=== PATIENT | male | born 1960 | race Caucasian/White ===

== ENCOUNTER 2017-08-29 07:45 | Emergency (ER) | payer BC ==
--- NOTE | 2017-08-29 09:16 | ER Document Report ---
ED Extremity Problem, Lower - General Chief Complaint: Leg Pain Stated Complaint: RIGHT LEG PAIN Time Seen by Provider: 08/29/17 09:13 Notes: The patient is a 57-year-old male, PMHx DM, current smoker, who presents with pain and swelling behind his right knee and right calf for the past 6 days. 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 He denies chest pain, shortness of breath, recent travel, history of DVTs, recent immobilization, numbness, tingling or injury. - Related Data Allergies/Adverse Reactions: No Known Allergies Allergy (Unverified 08/29/17 07:49) Past Medical History - General Information source: Patient - Social History Smoking Status: Current Every Day Smoker Family History: Reviewed & Not Pertinent Review of Systems - Review of Systems Notes: REVIEW OF SYSTEMS: CONSTITUTIONAL: -fevers, -chills EENT: -eye pain, -difficulty swallowing, -nasal congestion CARDIOVASCULAR: -chest pain, -syncope. RESPIRATORY: -cough, -SOB GASTROINTESTINAL: -abdominal pain, -nausea, -vomiting, -diarrhea GENITOURINARY: -dysuria, -hematuria MUSCULOSKELETAL: +right leg pain, -back pain, -neck pain SKIN: -rash or skin lesions. HEMATOLOGIC: -easy bruising or bleeding. LYMPHATIC: -swollen, enlarged glands. NEUROLOGICAL: -altered mental status or loss of consciousness, -headache, - neurologic symptoms PSYCHIATRIC: -anxiety, -depression. ALL OTHER SYSTEMS REVIEWED AND NEGATIVE. Physical Exam - Vital signs Vitals: Temp Pulse Resp BP Pulse Ox 98.5 F 95 16 131/74 H 97 08/29/17 07:59 08/29/17 07:59 08/29/17 07:59 08/29/17 07:59 08/29/17 07:59 - Notes Notes: PHYSICAL EXAMINATION: GENERAL: Well-appearing, well-nourished and in no acute distress. HEAD: Atraumatic, normocephalic. EYES: Pupils equal round and reactive to light, extraocular movements intact, sclera anicteric, conjunctiva are normal. ENT: nares patent, oropharynx clear without exudates. Moist mucous membranes. NECK: Normal range of motion, supple without lymphadenopathy LUNGS: Breath sounds clear to auscultation bilaterally and equal. No wheezes rales or rhonchi. HEART: Regular rate and rhythm without murmurs ABDOMEN: Soft, nontender, normoactive bowel sounds. No guarding, no rebound. No masses appreciated. EXTREMITIES: Strong distal pulses. Sensation intact. Right calf tenderness and popliteal tenderness. Normal range of motion, no pitting or edema. No cyanosis. NEUROLOGICAL: Cranial nerves grossly intact. Normal speech, normal gait. Normal sensory and motor exams. PSYCH: Normal mood, normal affect. SKIN: Warm, Dry, normal turgor, no rashes or lesions noted. Course - Re-evaluation Re-evalutation: Call from Dr. Chang. Pt with RLE DVT. He has no chest pain, shortness of breath, hypoxia or tachycardia to suggest PE. Patient's primary care physician is in [place]. Spoke to patient's about risks and benefits of Xarelto and Coumadin and patient elects to have Xarelto. Will begin him on a Xarelto starter pack for the treatment of DVT with very strict return precautions, especially about pulmonary embolism. Also instructed him to stop smoking. Pt comfortable with plan and he understands return precautions. - Vital Signs Vital signs: Temp Pulse Resp BP Pulse Ox 98.5 F 95 16 131/74 H 97 08/29/17 07:59 08/29/17 07:59 08/29/17 07:59 08/29/17 07:59 08/29/17 07:59 Discharge - Discharge Clinical Impression: DVT, lower extremity Qualifiers: Affected thrombotic vein of extremity: unspecified vein of extremity Chronicity : acute Laterality: right Qualified Code(s): I82.401 - Acute embolism and thrombosis of unspecified deep veins of right lower extremity Condition: Stable Disposition: HOME, SELF-CARE Additional Instructions: Take the Xarelto as directed. If you notice any signs of bleeding, you have any chest pain or shortness of breath, return to the emergency room. You must follow-up with your primary care physician when you return to [place]. DVT Outpatient Treatment You have deep venous thrombosis (DVT) in your leg. DVT or phlebitis is blood clots within the large deep veins. This causes redness, warmth, and tenderness of the involved area. This problem is more likely to affect people who smoke, take estrogen, have had recent surgery, have been immobile, have had previous DVT, or who have serious underlying health conditions. Keep your legs elevated. A heating pad, 20 minutes every two hours, can help with leg pain. For now, keep walking to a minimum. Don't do any physical work, lifting, or exercise. If the doctor has recommended medication for you, it 's important that you take it. You will be started on a blood-thinning medication. Follow-up is important. Your medication needs to be monitored. Call or return at once if you cough blood or vomit blood, pass black or bloody stool, or have any other unusual bleeding. DVT can cause serious complications. The clots can damage the valves in the veins, leading to chronic pain and swelling. If a clot breaks loose and floats upstream, it can stick in the lungs. A clot in the lungs, called pulmonary embolism, can be life-threatening. Call the doctor or return if you develop increasing leg pain and swelling, leg discoloration, fever, chest pain, or shortness of breath. Prescriptions: Rivaroxaban [Xarelto] 1 each PO BID 28 Days [id number] Forms: Elevated Blood Pressure, Smoking Cessation Education Referrals: GITA CHANG MD [ACTIVE STAFF] - Follow up as needed
[2017-08-29] MEDS ORDERED: RIVAROXABAN 15 MG TABLET PO ONE (11:08)
[2017-08-29 11:18] VITALS: BP 130/77
--- NOTE | 2017-08-29 13:37 | XCELERA REPORT ---
[address] [address] Lower Extremity Venous Evaluation Name: SUZANNA EVANS Age: 57 yrs Gender: Male : 1960 Patient Status: Emergency Patient Location: ER Study Date: 08/29/2017 10:13 AM Procedure: Color flow and duplex imaging of the veins of the right lower extremity as well as the left Common Femoral vein. Reason For Study: right leg pain Ordering Physician: CASSI DAY Performed By: Paty Koehler Right Sided Venous Evaluation Abnormal vessel filling , no compression and no Colour flow in the Femoral to Popliteal veins. Left Sided Venous Evaluation The left common femoral vein is fully compressible. Spontaneous and phasic flow is present in the left common femoral vein. Critical Findings Discussed with Dr Day. Interpretation Summary Quite extensive, acute DVT in the right lower extremity. : CASSI DAY > Colton Chang
== END 2017-08-29 11:27 | disposition home or self-care (01) ==
LOC: ER 07:45
DX: I82.401 Acute embolism and thrombosis of unspecified deep veins of right lower extremity (principal); M79.661 Pain in right lower leg; F17.200 Nicotine dependence, unspecified, uncomplicated; E11.9 Type 2 diabetes mellitus without complications
CPT/HCPCS: 93971; 99283